=== PATIENT | female | born 1990 | race Caucasian/White ===

== ENCOUNTER 2017-05-25 12:51 | Emergency (ER) | payer BC ==
[2017-05-25 12:58] VITALS: BP 126/72; PULSE 95; RESP 20; TEMP 97.8; O2SAT 98
--- NOTE | 2017-05-25 13:08 | ED PDOC ---
Lower Extremity Pain/Injury Time Seen by Provider: 05/25/17 13:00 Chief Complaint (Nursing): Lower Extremity Problem/Injury Chief Complaint (Provider): Lower Extremity Problem/Injury History Per: Patient History/Exam Limitations: no limitations Onset/Duration Of Symptoms: Hrs (x 1) Current Symptoms Are (Timing): Still Present Additional Complaint(s): Kristan is a 27 year old female who presents to the emergency department complaining of right great toe pain s/p injury. Patient state earlier today she was performing aerial "yoga" and struck her right great toe 3 feet from the floor. Reports multiple surgeries same foot due to fractures. Patient is requesting medication for pain. PMD: No Family Provider - Ankle/Foot Description Of Injury: Fell Past Medical History Reviewed: Historical Data, Nursing Documentation, Vital Signs Vital Signs: Last Vital Signs Temp 97.8 F 05/25/17 12:55 Pulse 95 H 05/25/17 12:55 Resp 20 05/25/17 12:55 BP 126/72 05/25/17 12:55 Pulse Ox 98 05/25/17 12:55 - Surgical History Other surgeries: Right Foot Surgery - Family History Family History: States: No Known Family Hx - Allergies Allergies/Adverse Reactions: Allergies Allergy/AdvReac Type Severity Reaction Status Date / Time No Known Allergies Allergy Verified 05/25/17 12:55 Review of Systems Musculoskeletal: Positive for: Foot Pain (Right great toe pain) Physical Exam - Reviewed Nursing Documentation Reviewed: Yes Vital Signs Reviewed: Yes - Physical Exam Pulses-Dorsalis Pedis (R): 2+ Extremity: Positive for: Capillary Refill (less than 2 seconds), Other (Right great toe tenderness at IP joint without deformity, miminal swelling noted) - ECG O2 Sat by Pulse Oximetry: 98 (RA) Pulse Ox Interpretation: Normal Medical Decision Making Medical Decision Making: Time: 13:03 Plan: - Tylenol 325 mg Tab - Right Foot-Great Toe X-Ray Time: 13:23 Discussed results with patient. X-ray findings were read and interpreted by me. No broken bones or dislocation; 2 screws in 1st MTP noted and in place. Patient was offered crunches, but declined. Toes indira taped by CALDERON. Upon provider evaluation patient is medically stable, and requires no further treatment in the ED at this time. Patient will be discharged. Counseling was provided and all questions were answered regarding diagnosis and need for follow up with captain waiter/waitress. There is agreement to discharge plan. Return if symptoms persist or worsen. Scribe Attestation: Documented by Lucio Yañez, acting as a scribe for Alvarado Khan PA-C Provider Scribe Attestation: All medical record entries made by the Scribe were at my direction and personally dictated by me. I have reviewed the chart and agree that the record accurately reflects my personal performance of the history, physical exam, medical decision making, and the department course for this patient. I have also personally directed, reviewed, and agree with the discharge instructions and disposition. Disposition - Clinical Impression Clinical Impression: Toe injury - Patient ED Disposition Is Patient to be Admitted: No - Disposition Referrals: Podiatry Clinic [Outside] Disposition: Routine/Home Disposition Time: 13:31 Condition: STABLE Additional Instructions: Follow up with podiatry clinic for further evaluation. Take Tylenol or Motrin at home for pain. Instructions: Sprain (ED), RICE Therapy (ED) Forms: [employer] (Chinese) Print Language: COMORAN
--- NOTE | 2017-05-25 15:50 | RAD ---
PROCEDURE: Radiographs of the right great toe. TECHNIQUE:: AP radiograph of the right foot, with oblique and lateral view of the right great toe. COMPARISON: None. FINDINGS: BONES: No fracture. Status post arthrodesis at TMT 1. JOINTS: Normal. SOFT TISSUES: Normal. OTHER FINDINGS: None. IMPRESSION: No acute fracture
== END 2017-05-25 13:51 | disposition home or self-care (01) ==
LOC: H.ER 12:51
DX: S99.921A Unspecified injury of right foot, initial encounter (principal); W22.8XXA Striking against or struck by other objects, initial encounter; Y92.89 Other specified places as the place of occurrence of the external cause